=== PATIENT | female | born 1975 | race Caucasian/White ===

== ENCOUNTER 2020-06-10 19:19 | Outpatient (REF) | payer SELFPAY ==
[2020-06-12 15:37] LABS: Patient Race White; SARS-CoV-2 RNA Undetected (Undetected); SARS-CoV-2 Specimen Source Nasal
== END 2020-06-10 19:39 ==
LOC: NCHCN 19:19
PROVIDERS: Visit Provider Nurse Practitioner Family
DX: Z20.828 Contact with and (suspected) exposure to other viral communicable diseases (principal)
CPT/HCPCS: U0003

== ENCOUNTER 2022-01-14 16:10 | Outpatient (REF) | payer SELFPAY ==
[2022-01-16 11:23] LABS: COVID-19 RT-PCR UVMMC Result Negative (Negative)
== END 2022-01-14 16:11 | disposition home or self-care (01) ==
LOC: LBN 16:10
PROVIDERS: Visit Provider Physician Assistant Medical
DX: Z20.822 Contact with and (suspected) exposure to COVID-19 (principal)
CPT/HCPCS: U0003

== ENCOUNTER 2022-04-17 03:10 | Emergency (ER) | payer SELFPAY ==
[2022-04-17 03:14] VITALS: BP 131/79; PULSE 82; RESP 18; TEMP 36.6; O2SAT 100
--- OUTSIDE RECORDS SUMMARY | 2022-04-17 03:16 | XMS_ITS | Encounter Summary ---
:[address] [facility] Address [address] [place] [address] Care Team Providers Name Role Phone Unavailable Primary Care Provider Unavailable Encounter Details Date Type Department Care Team Description 01/15/2022 Lab Requisition [facility] Outr Resulting Lab, Pathology & Laboratory Provider [facility] [address] [place] [address] Social History Tobacco Use Types Packs/Day Years Used Date Never Assessed Sex Assigned at Date Recorded Not on file documented as of this encounter Plan of Treatment Not on filedocumented as of this encounter Procedures Procedure Name Priority Date/Time Associated Diagnosis Comme nts COVID-19 [facility] Today 01/14/2022 11:30 LAB PCR EDT COVID-19 TESTING Routine 01/14/2022 11:30 Results for this EDT procedure are i n the results section. documented in this encounter Results COVID-19 TEST [facility] PCR (01/14/2022 11:30 EDT) Specimen Swab Performing Organization Address City/State/ZIP Code Phon e Number [facility] [address] [place] [address] SERVICES COVID-19 TESTING (01/14/2022 11:30 EDT) COVID-19 rt-PCR Negative Negative [facility] Result Comment: [facility] This test has not been FDA c leared or approved. This test has been authorized by FDA under an EUA for use by authorized laboratories. This test has been authorized only for detection of nucleic acid fro SERVICES m 2019-nCoV, not for any oth er viruses or pathogens. This test is only authorized for the duration of the declaration that circumstances exist justifying the authorization of emergency use of in vitro d iagnostic tests for detectio n and/or diagnosis of 2019-nCoV under section 564(b)(1) of Act, 21 U.S.C ?? 360bbb-3(b) (1), unless the authorization is terminated or revoked sooner. Negative results do not prec lude 2019-nCoV infection and should not be used as the sole basis for treatment or other patient management decisions. Negative results must be combined with clinical observa tions, patient history, and epidemiological informatio n. Testing was performed using the jagjit SARS-CoV-2 assay ([employer] on the Jagjit 6800 System Performing Lab Jagjit 6800 [facility] Lab [facility] SERVICES Specimen Swab Performing Organization Address City/State/ZIP Code Phon e Number [facility] [address] [place] [address] SERVICES documented in this encounter Visit Diagnoses Not on filedocumented in this encounter
--- OUTSIDE RECORDS SUMMARY | 2022-04-17 03:16 | XMS_ITS | Clinical Summary ---
:1975 Author Organization [facility] Address [address] [place] [id number] Care Team Providers Name Role Phone Unavailable Primary Care Provider Unavailable Social History Tobacco Use Types Packs/Day Years Used Date Never Assessed Sex Assigned at Date Recorded Not on file Plan of Treatment Health Maintenance Due Date Last Done Comments Hepatitis C Screen 1975 COVID-19 Vaccine (#1) 1975
--- NOTE | 2022-04-17 03:19 | ED.GENADUL_ITS ---
Discharge Plan Disposition Patient Disposition: HOME Condition: Good Discharge Details Clinical Impression: Pyelonephritis Primary Care Provider: KaryLocal ED Provider: Yung Carmonas and New Rx's Prescriptions: New sulfamethoxazole-trimethoprim [Bactrim DS] 800-160 mg tablet 1 tab PO BID Qty: 14 0RF Continued lamotrigine 100 mg Tablet 100 mg PO 1XD Discharge Instructions Instructions: Urinary Tract Infection in Women (ED) Additional Instructions: You were seen in the ED for dysuria and urinary urgency with associated bilateral flank pain consistent with pyelonephritis. Your vital signs and exam are reassuring. Urine is suggestive of infection and culture is pending. We have started you on Bactrim and as discussed you should watch for any rash or allergic type reaction. Follow-up with primary care next week for recheck. Return to ED for worsening pain, vomiting, fever, allergic type reactions, other concerns. Medical Decision Making Patient presenting with bilateral flank pain in the setting of UTI symptoms over the last couple of days. Flank pain began today. Most likely complicated UTI/pyelonephritis. Vital signs are normal. Patient looks well. Urine test is negative. Urinalysis dips positive for blood and leukocyte esterase. Micro is greater than 50 red cells. No whites noted. Patient did finish her period yesterday. States she is not really bleeding at this point. Pain is bilateral flanks. Symptoms most consistent with a UTI and pyelonephritis not renal colic. Patient is extremely active and after discussion regarding quinolones would like to avoid. We will therefore start on Bactrim twice a day for 7 days. Patient declined Pyridium. She will use ibuprofen or acetaminophen for discomfort. Follow-up with primary care next week for recheck. Return precautions discussed. Lab Data Lab results reviewed: Yes I reviewed the patient's lab results. HPI General Mode of arrival: ambulatory . Date/Time Provider Initiated Documentation: 04/17/22 03:19 . Limitations to Documentation: no limitations . Information obtained by: patient and RN notes reviewed . HPI Narrative: Patient presents to ED with bilateral flank pain that began tonight. She has had UTI type symptoms with urgency and dysuria for a couple of days. She developed flank pain tonight and has been unable to sleep. She did take Advil before coming in and it seems to have helped. She denies fever or chills. She denies any vomiting but does have some abdominal discomfort. Related Data Home Medications Medication Instructions Recorded Confirmed lamotrigine 100 mg tablet 100 mg PO 1XD 04/17/22 04/17/22 sulfamethoxazole 800 1 tab PO BID #14 tabs 04/17/22 mg-trimethoprim 160 mg tablet (Bactrim DS) Previous Rx's Medication Instructions Recorded sulfamethoxazole 800 1 tab PO BID #14 tabs 04/17/22 mg-trimethoprim 160 mg tablet (Bactrim DS) Allergies Allergy/AdvReac Type Severity Reaction Status Date / Time No Known Allergies Allergy Unverified 04/17/22 03:19 General Stated Complaint: FlankPain ADOLPH: 3 Review of Systems Narrative: 11/22 Review of Systems completed and is negative except as stated above in HPI (Systems reviewed: Const, Resp, CV, GI, Neuro) PFSH All Active Problems (Updated 04/17/22 @ 03:50 by Yung Carmona MD) Pyelonephritis (Acute) Medical History Pulmonary embolism Surgical History History of section Social History Smoking/Tobacco Use Status: Never Smoking risk assessment performed?: Yes Alcohol Intake: current Alcohol Intake frequency: holidays/special occasions only Drug use: Never Substance use type: does not use Do you feel safe at home: Yes Exam Narrative Exam Narrative: Const: WDWN female in NAD. HEENT: NC/AT. Normal facial exam. Eyes: Normal conjunctiva and sclera. Neck: Supple. Trachea midline. Lungs: Normal respiratory effort. Lungs are clear. Cor: RRR without murmur/gallop. Good radial pulses. GI: Soft. NT/ND. No guarding or rebound. Back: No CVAT Neuro: A+O x 3. Normal speech, mentation, gait. Cranial nerves II - XII grossly intact. No gross motor or sensory deficit. Ext: No C/C/E. Skin: Warm and dry without rash. Course Vital Signs Vital signs: Vital Signs Temperature 97.9 F 04/17/22 03:14 Pulse 82 04/17/22 03:14 Respiratory Rate 18 04/17/22 03:14 Blood Pressure 131/79 04/17/22 03:14 Pulse Oximetry 100 04/17/22 03:14 Temperature 97.9 F 04/17/22 03:14 Temperature Source Oral 04/17/22 03:14 Pulse 82 04/17/22 03:14 Respiratory Rate 18 04/17/22 03:14 Respiratory Effort 04/17/22 03:17 Blood Pressure 131/79 04/17/22 03:14 Blood Pressure Position Supine 04/17/22 03:14 Pulse Oximetry 100 04/17/22 03:14 Oxygen Delivery Method Room Air 04/17/22 03:14 Oxygen Flow Rate 0 04/17/22 03:14 Pain Level 7 04/17/22 03:17 Comment 04/17/22 03:14
[2022-04-17 03:34] LABS: Bilirubin Negative (Negative); Blood Large (Negative); Clarity Sl Cloudy (Clear); Glucose Negative (Negative); Ketones Negative (Negative); Leukocyte Esterase Moderate (Negative); Nitrite Negative (Negative); Urobilinogen 0.2 EU/dL (Up TO 0.2)
[2022-04-17 03:37] LABS: WBC >50 HPF (0-5)
[2022-04-17 03:38] LABS: C & S Indicated? Yes
[2022-04-17] MEDS: Sulfameth/Trimeth DS TAB 1 TAB PO (03:50)
== END 2022-04-17 04:02 | disposition home or self-care (01) ==
PROVIDERS: Emergency Provider Emergency Medicine
DX: N12 Tubulo-interstitial nephritis, not specified as acute or chronic (principal)
CPT/HCPCS: 81025; 99283; 81003; 81015; 87086; 99284

== ENCOUNTER 2022-11-12 18:10 | Outpatient (REF) | payer SELFPAY ==
[2022-11-12 21:12] LABS: Abs Immature Grans 0.01 10^3/uL (0.0-0.06); Absolute Basophil Count 0.05 10^3/uL (0.0-0.2); Absolute Eosinophil Count 0.29 10^3/uL (0.0-0.7); Absolute Lymphocyte Count 2.03 10^3/uL (1.2-3.4); Absolute Monocyte Count 0.33 10^3/uL (0.1-0.8); Absolute Neutrophil Count 3.05 10^3/uL (1.2-6.7); Basophils % 0.9; HCT 40.7 % (36.0-46.0); HGB 13.4 g/dL (11.2-15.7); Immature Grans % 0.2; Lymphocytes % 35.2; MCH 28.6 pg (27.0-33.0); MCHC 32.9 % (32.0-36.0); MCV 87 fL (80-95); MPV 11.8 fL (8.0-11.0); Monocytes % 5.7; Platelet Count 236 10^3/uL (130-400); RBC 4.69 10^6/uL (3.93-5.22); RDW 11.7 % (11.7-14.6); RDW-SD 37.2 fL; WBC 5.76 10^3/uL (4.4-10.8)
[2022-11-12 21:14] LABS: ESR 4 mm/hr (0-20)
[2022-11-12 21:54] LABS: Iron 88 ug/dL (50-170); Total Iron Binding Capacity 347 ug/dL (250-450); Transferrin Sat 25 % (15-50)
[2022-11-12 22:25] LABS: ALT 33 U/L (14-59); AST 19 U/L (15-37); Albumin 4.2 g/dL (3.4-5.0); Alkaline Phosphatase 46 U/L (46-116); Anion Gap 9.1 mmol/L (3-11); BUN 15 mg/dL (7-18); Bilirubin, Total 0.3 mg/dL (0.2-1.0); CO2 27.9 mmol/L (21.0-32.0); CREATININE 0.9 mg/dL (0.55-1.02); Calcium 8.9 mg/dL (8.5-10.1); Calculated LDL 106 mg/dL (<100); Chloride 104 mmol/L (98-107); Cholesterol 197 mg/dL (<200); Estimated GFR 79.85 (mL/min/1.73m2); Ferritin 39 ng/mL (8-252); Glucose 98 mg/dL (74-106); HDL Cholesterol 72 mg/dL (40-60); Potassium 4.1 mmol/L (3.5-5.1); Sodium 141 mmol/L (136-145); TSH (W/Ref FT4) 2.17 uIU/mL (0.36-3.74); Total Protein 7.2 g/dL (6.4-8.2); Triglyceride 97 mg/dL (<150); Vitamin B12 453 pg/mL (193-986)
[2022-11-12 22:37] LABS: C-Reactive Protein 0.08 mg/dL (0.0-0.3)
[2022-11-13 19:09] LABS: Rheumatoid Factor <8.6 IU/mL (<12.0)
[2022-11-16 10:34] LABS: Lyme Ab w Rflx to Lyme Confirm Negative (Negative)
[2022-11-17 13:49] LABS: ANA Interpretation Negative (Negative)
[2022-11-17 14:20] LABS: Anaplasma phagocytophilum Negative (Negative); B. miyamotoi PCR Negative (Negative); Babesia divergens/MO-1 Negative (Negative); Babesia duncani Negative (Negative); Babesia microti Negative (Negative); Ehrlichia chaffeensis Negative (Negative); Ehrlichia ewingii/canis Negative (Negative); Ehrlichia muris eauclairensis Negative (Negative)
== END 2022-11-12 18:11 | disposition home or self-care (01) ==
LOC: NCHCN 18:10
PROVIDERS: Visit Provider Nurse Practitioner Family
DX: N92.6 Irregular menstruation, unspecified (principal); F41.8 Other specified anxiety disorders; M79.643 Pain in unspecified hand; M54.50 Low back pain, unspecified
CPT/HCPCS: 80053; 80061; 85652; 87798; 82607; 82728; 83540; 83550; 84443; 85025; 86038; 86140; 86431; 86618

== ENCOUNTER → 2023-08-16 04:38 | Outpatient (CLI) | payer SELFPAY ==
--- NOTE | 2023-08-16 | DI.MAMMO_ITS ---
Exam(s) MAMMO SCREENING EXAM: MAMMO SCREENING CLINICAL HISTORY: SCREENING, Z12.31. TECHNIQUE: Bilateral full field digital CC and MLO mammographic images were obtained with 3D tomosyn thesis and utilizing computer aided detection (CAD). COMPARISON: Prior mammogram of 2016 was reviewed. There are no interval mammograms. Ultrasound of 2016 was also reviewed. FINDINGS: Fibroglandular tissue pattern is again noted be moderately dense, this somewhat decreasing the sensit ivity of the mammogram for finding hidden underlying lesions. There are no CAD designations. There are no obvious new spiculated masses nor malignant appearing microcalcification groups. There is no significant architectural distortion nor skin thickening-retraction. IMPRESSION: Moderately dense fibroglandular tissue. No obvious radiographic evidence of malignancy nor significa nt change compared the mammogram of 2016. Please note that this patient had a finding on right breast ultrasound of 2016 at the 8 o'clock posit ion hidden subjacent to her dense fibroglandular tissue. There is no biopsy marker clip in the breas t. Therefore I suspect that this is still present and I feel would be prudent to perform ultrasound to revisit this right breast finding. BI-RADS Category 0 - Assessment Incomplete: Need additional imaging evaluation Breast Density - Category C - Heterogeneously dense Breast density Category C or D implies that the patient has dense breast tissue. Dense breast tissue can make it harder to find cancer on a mammogram. Dense breast tissue is also associated with an incr eased risk of breast cancer. This information about the result of the mammogram report was provided to the patient to raise their awareness. Use this report when you speak with the patient about their risks for breast cancer, which includes their family history. At that time, you may recommend additional screening tests (Ultrasoun d or MRI) as these tests may add significant information. A negative radiographic report should not delay biopsy if a dominant or clinically suspicious mass is present. Up to ten percent of cancers are not identified on mammography. A negative report may reinforce clinical impression. Adenosis and dense breasts may obscure an underlying neoplasm. False positive reports average 6 to 10%. Patient will receive a letter notifying them of these results.
== END ==
PROVIDERS: Visit Provider Nurse Practitioner Family
DX: Z12.31 Encounter for screening mammogram for malignant neoplasm of breast (principal); R92.8 Other abnormal and inconclusive findings on diagnostic imaging of breast; R92.333 Mammographic heterogeneous density, bilateral breasts
CPT/HCPCS: 77063; 77067

== ENCOUNTER 2023-09-12 10:07 | Emergency (ER) | payer SELFPAY ==
[2023-09-12 10:10] VITALS: BP 104/66; PULSE 70; RESP 18; TEMP 37; O2SAT 100
--- NOTE | 2023-09-12 10:56 | ED.GENADUL_ITS ---
Discharge Plan Disposition Patient Disposition: Home Condition: Improving Discharge Details Chief Complaint: Laceration Clinical Impression: Finger laceration Primary Care Provider: Unknown,Unknown ED Provider: Joseph Winter Discharge Instructions Instructions: Finger Laceration (ED) HPI General Date/Time Provider Initiated Documentation: 09/12/23 10:15 . HPI Narrative: 48-year-old female presents with laceration to tip of left middle finger caught on the small dog was pulling her, bleeding controlled, patient put topical yarrow powder on wound Related Data Allergies Allergy/AdvReac Type Severity Reaction Status Date / Time No Known Allergies Allergy Unverified 09/12/23 10:13 General Stated Complaint: Laceration ADOLPH: 3 Review of Systems Narrative: Review of Systems Constitutional: negative Eyes: negative ENT: negative Cardiovascular: negative Respiratory: negative Gastrointestinal: negative : negative Musculoskeletal: negative Skin: finger laceration Neurologic: negative Psych: negative Exam Narrative Exam Narrative: Hand: Left, 2 cm ellipsoid flap laceration to distal tip of volar aspect of third digit, exposed subcutaneous fat, proximal and distal flexion intact, good capillary refill sensate no foreign body hemostatic Course Vital Signs Vital signs: Vital Signs Temperature 37.0 C 09/12/23 10:10 Pulse 70 09/12/23 10:10 Respiratory Rate 18 09/12/23 10:10 Blood Pressure 104/66 09/12/23 10:10 Pulse Oximetry 100 09/12/23 10:10 Temperature 37.0 C 09/12/23 10:10 Temperature Source Skin 09/12/23 10:10 Pulse 70 09/12/23 10:10 Respiratory Rate 18 09/12/23 10:10 Respiratory Effort Normal, Non-Labored 09/12/23 10:12 Blood Pressure 104/66 09/12/23 10:10 Blood Pressure Position Sitting 09/12/23 10:10 Pulse Oximetry 100 09/12/23 10:10 Oxygen Delivery Method Room Air 09/12/23 10:10 Oxygen Flow Rate 0 09/12/23 10:10 Pain Level 1 09/12/23 10:10 Medical Decision Making 48-year-old female presents after lacerating the distal tip of her left middle finger, volar aspect, elliptical 2 cm, exposed subcutaneous fat, hemostatic no foreign body, yarrow powder applied before arrival, wound irrigated, digital nerve block 1% lidocaine, wound approximated with 6 x 5-0 Vicryl simple interrupted. Patient tolerated procedure well, good approximation, neurovascular exam intact. No evidence of infection not a dirty wound. Home care instruction return precautions given. Tdap updated Quality:SDOH Health Related Social Needs: No Data to Display PFSH All Active Problems (Updated 09/12/23 @ 11:00 by Joseph Winter MD) Finger laceration (Acute) Medical History Pulmonary embolism Surgical History History of section Social History Smoking/Tobacco Use Status: Never Smoking risk assessment performed?: Yes Alcohol Intake: current Alcohol Intake frequency: holidays/special occasions only Drug use: Never Substance use type: does not use Do you feel safe at home: Yes
[2023-09-12] MEDS: Ibuprofen 400 MG TAB PO (11:02)
[2023-09-12] MEDS: Acetaminophen 325 MG TAB 650 MG PO (11:03)
[2023-09-12 11:11] VITALS: PULSE 68; RESP 16; O2SAT 98
== END 2023-09-12 11:15 | disposition home or self-care (01) ==
PROVIDERS: Emergency Provider Emergency Medicine
DX: S61.213A Laceration without foreign body of left middle finger without damage to nail, initial encounter (principal); Z23 Encounter for immunization; W45.8XXA Other foreign body or object entering through skin, initial encounter; Y93.K1 Activity, walking an animal
CPT/HCPCS: 12001; 90471; 90715; 99283

== ENCOUNTER 2023-11-23 14:24 | Outpatient (REF) | payer SELFPAY ==
[2023-11-23 15:29] LABS: ALT 29 U/L (14-59); AST 17 U/L (15-37); Albumin 4.2 g/dL (3.4-5.0); Alkaline Phosphatase 57 U/L (46-116); Anion Gap 7.7 mmol/L (3-11); BUN 21 mg/dL (7-18); Bilirubin, Total 0.6 mg/dL (0.2-1.0); CO2 30.3 mmol/L (21.0-32.0); CREATININE 0.8 mg/dL (0.55-1.02); Calcium 8.9 mg/dL (8.5-10.1); Chloride 106 mmol/L (98-107); Glucose 83 mg/dL (74-106); Potassium 4.3 mmol/L (3.5-5.1); Sodium 144 mmol/L (136-145)
[2023-11-26 10:53] LABS: Lamotrigine <0.2 mcg/mL (3.0-15.0)
== END 2023-11-23 14:25 | disposition home or self-care (01) ==
LOC: NCHCN 14:24
PROVIDERS: PCP Nurse Practitioner Family; Visit Provider Nurse Practitioner Family
DX: F41.9 Anxiety disorder, unspecified (principal)
CPT/HCPCS: 80053; 80175

== ENCOUNTER 2023-12-03 13:46 | Outpatient (REF) | payer SELFPAY ==
--- NOTE | 2023-12-03 12:30 | PAPFT_PTH ---
PATIENT: Pierce Perez LOC: [facility]#:[id number] AGE/SX: 48/F ROOM: RE12/03/[address]: Breanne Dexter : 1975 BED: DIS: 12/03/2023 SPEC #: [id number] RECD: 12/03/23 17:55 STATUS: JOANN DEVI #: [id number] MOHAN: 12/03/23 12:[address]: Breanne Dexter DEPT: [facility] Cytology RECD BY: Yolanda Worthington Tissues: 1 - CX/ENDOCX FOR PAP SMEARS Procedures: PAP THIN PREP/UVM Screening HPV DNA PROBE Comments: [id number]
== END 2023-12-03 13:47 | disposition home or self-care (01) ==
LOC: NCHCN 13:46
PROVIDERS: PCP Nurse Practitioner Family; Visit Provider Nurse Practitioner Family
DX: Z12.4 Encounter for screening for malignant neoplasm of cervix (principal)
CPT/HCPCS: 88142; 87624